=== PATIENT | male | born 1960 | race Two or more races ===

== ENCOUNTER 2017-01-20 13:59 | Emergency (ER) | payer OTHER ==
[~2017-01-20] VITALS: Ht 172.7 cm; Wt 97.5 kg
[2017-01-20] MEDS ORDERED: SODIUM CHLORIDE 0.9% 250 ML IV ONE (15:09)
[2017-01-20] MEDS ORDERED: METOCLOPRAMIDE HCL 5MG/ml INJ 2ml VIAL IV ONE (15:15)
[2017-01-20] MEDS ORDERED: HYDROmorphone HCL 2 MG/ML VL IV ONE (15:15)
[2017-01-20 15:18] LABS: Basophils # (auto) 0.1 uL; Basophils % (auto) 0.5 % (0.0-2.0); CONDITION Y; Eosinophils # (auto) 0.1 uL; Eosinophils % (auto) 0.8 % (0.0-7.0); Hematocrit 47.5 % (41.0-53.0); Hemoglobin 16.6 g/dL (13.5-17.5); Lymphocytes # (auto) 1.6 uL; Lymphocytes % (auto) 13.9 % (10.0-50.0); Mean Corpuscular Hemoglobin 31.1 pg (28.0-32.0); Mean Corpuscular Hgb Conc. 34.9 g/dL (32.0-36.0); Mean Corpuscular Volume 89.1 fL (80.0-100.0); Mean Platelet Volume 9.3 fL (7.4-10.4); Monocytes # (auto) 1.1 uL; Monocytes % (auto) 9.7 % (0.0-12.0); Neutrophils # (auto) 8.5 uL; Neutrophils % (auto) 75.1 % (37.0-80.0); Platelet Count (auto) 437 10^3/uL (140-450); Red Cell Distribution Width 14.1 % (11.6-16.0); White Blood Cell 11.3 10^3/uL (4.4-10.8)
[2017-01-20] MEDS ORDERED: IOHEXOL 300 MG/ML 100ML BOTTLE IJ ONE (15:19)
[2017-01-20 15:53] LABS: Albumin 4.1 g/dL (3.4-5.0); Alkaline Phosphatase 105 U/L (45-117); Anion Gap 10 (5-15); Aspartate Aminotransferase 39 U/L (15-37); BUN/Creatinine Ratio 15.5; Bilirubin, Total 0.7 mg/dL (0.2-1.0); Blood Urea Nitrogen 11 mg/dL (7-18); Calcium 9.4 mg/dL (8.5-10.1); Carbon Dioxide 22 mmol/L (21-32); Chloride 105 mmol/L (98-107); GFR African American 148 mL/min; GFR Non-African American 122 mL/min; Glucose 112 mg/dL (74-106); Potassium 3.8 mmol/L (3.5-5.1); Sodium 137 mmol/L (136-145); Total Protein 8.3 g/dL (6.4-8.2)
[2017-01-20 18:06] VITALS: BP 146/107
== END 2017-01-20 18:52 | disposition home or self-care (01) ==
LOC: EDBD 13:59 → ER 14:08
DX: S00.03XA Contusion of scalp, initial encounter (principal); M62.830 Muscle spasm of back; S29.9XXA Unspecified injury of thorax, initial encounter; S39.91XA Unspecified injury of abdomen, initial encounter; K21.9 Gastro-esophageal reflux disease without esophagitis; I10 Essential (primary) hypertension; V49.50XA Passenger injured in collision with unspecified motor vehicles in traffic accident, initial encounter; Z88.1 Allergy status to other antibiotic agents; Y93.89 Activity, other specified; Y99.8 Other external cause status; Y92.89 Other specified places as the place of occurrence of the external cause
CPT/HCPCS: 36415; 70450; 71260; 72125; 74177; 80053; 83735; 84484; 85025; 93005; 94761; 96361; 96374; 96375; 99285; J1170; J2765; J7030; Q9967